=== PATIENT | female | born 1980 | race African-American/Black ===

== ENCOUNTER 2020-06-15 03:15 | Emergency (ER) | payer OTHER ==
[~2020-06-15] VITALS: Ht 147.3 cm; Wt 72.6 kg
[2020-06-15 03:20] VITALS: BP 136/82
--- NOTE | 2020-06-15 03:21 | NUR ---
PT ANDRES HENSLEY, PREBOOK WITH MARY JAMIL. TAKEN TO CHAIR D
--- NOTE | 2020-06-15 03:29 | NUR ---
Dr. Ruvalcaba examining patient.
--- NOTE | 2020-06-15 04:26 | NUR ---
DONI TAYLOR FROM [facility] - PT HAS BEEN CITED AND IS RELEASED FROM THEIR CUSTODY AT THIS TIME.
--- NOTE | 2020-06-15 04:26 | NUR ---
PT CITE AND RELEASED BY MARY JAMIL
--- NOTE | 2020-06-15 04:37 | NUR ---
PT TAKEN TO XRAY
--- NOTE | 2020-06-15 04:47 | NUR ---
PT RETURN FROM XRAY
[2020-06-15 05:00] VITALS: BP 136/82
--- NOTE | 2020-06-15 05:00 | NUR ---
PATIENT ELOPED FROM FACILITY. DISCHARGE INSTRUCTIONS NOT GIVEN TO PATIENT. DR. NEVILLE NOTIFIED.
== END 2020-06-15 05:00 | disposition left against medical advice (07) ==
LOC: MED 03:15
DX: R10.30 Lower abdominal pain, unspecified (principal)
CPT/HCPCS: 74018; 81002; 81025; 99283

== ENCOUNTER 2020-10-11 21:06 | Emergency (ER) | payer OTHER ==
[~2020-10-11] VITALS: Ht 157.5 cm; Wt 68.0 kg
[2020-10-11 21:07] VITALS: BP 122/79
--- NOTE | 2020-10-11 21:07 | NUR ---
TO BED VIA WHEEELCHAIR
--- NOTE | 2020-10-11 21:22 | NUR ---
PATIENT AMBULATED WITH SLOW, STEADY GAIT FROM RESTROOM WITH BED.
--- NOTE | 2020-10-11 21:24 | NUR ---
39 Y/O FEMALE CAME TO THE ED FOR LEFT ABDOMINAL PAIN OF 03/28 THAT STARTED TODAY. DENIES N/V/D; SKIN IS PINK/WARM/DRY; AAOX4 WITH EVEN AND STEADY GAIT; LUNGS CLEAR BL; HR EVEN AND REGULAR; PT DENIES ANY FEVER, CP, SOB, OR COUGH AT THIS TIME; VSS; PATIENT POSITIONED FOR COMFORT; HOB ELEVATED; BEDRAILS UP X2; BED DOWN. ER MD MADE AWARE OF PT STATUS. PMH: GASTRIC BYPASS 2017, UTERUS TUMOR REMOVAL SEPTEMBER 2018 JAYDE
--- NOTE | 2020-10-11 21:24 | NUR ---
ERMD AT BEDSIDE.
[2020-10-11] MEDS ORDERED: FAMOTIDINE 20 MG/2 ML VIAL IVP ONE (21:30)
[2020-10-11] MEDS ORDERED: NACL 0.9% 1,000 ML IV ONE (21:30)
[2020-10-11] MEDS ORDERED: MORPHINE SULFATE 4 MG/ML SYR IVP ONE (21:30)
[2020-10-11 21:47] LABS: BASOPHILS % (AUTO) 1.3 % (0.0-2.0); EOSINOPHILS % (AUTO) 0.9 % (0.0-4.0); HEMATOCRIT 34.8 % (36-48); HEMOGLOBIN 11.2 g/dL (12.0-16.0); LYMPHOCYTES # (AUTO) 1.1 K/uL (2.5-16.5); LYMPHOCYTES % (AUTO) 33.4 % (20.5-51.1); MEAN CORPUSCULAR HEMOGLOBIN 29 pg (27-31); MEAN CORPUSCULAR HGB CONC 32 g/dL (33-37); MEAN CORPUSCULAR VOLUME 88.7 fL (80-94); MONOCYTES # (AUTO) 0.3 K/uL (0.8-1.0); MONOCYTES % (AUTO) 7.8 % (1.7-9.3); NEUTROPHILS # (AUTO) 1.9 K/uL (1.8-7.7); NEUTROPHILS % (AUTO) 56.6 % (42.2-75.2); PLATELET COUNT (AUTO) 452 K/uL (140-450); RED BLOOD CELL COUNT(AUTO) 3.92 MIL/uL (4.20-5.40); RED CELL DISTRIBUTION WIDTH 22.5 % (11.6-13.7); WHITE BLOOD COUNT (AUTO) 3.4 K/uL (4.8-10.8)
[2020-10-11 21:47] LABS: APPEARANCE,URINE CLEAR (CLEAR); BILIRUBIN,URINE NEGATIVE (NEGATIVE); BLOOD, URINE NEGATIVE (NEGATIVE); COLOR,URINE YELLOW (YELLOW); LEUKOCYTE ESTERASE ,URINE NEGATIVE (NEGATIVE); NITRITE, URINE NEGATIVE (NEGATIVE); UGLUCOSE NEGATIVE (NEGATIVE)
[2020-10-11 22:00] LABS: BARBITURATE, URINE NEGATIVE ng/ml (NEG <=200); BENZODIAZEPINE, URINE NEGATIVE ng/mL (NEG <=200); CANNABINOID, URINE NEGATIVE ng/mL (NEG <=50); COCAINE, URINE NEGATIVE ng/mL (NEG <=300); OPIATE, URINE NEGATIVE ng/mL (NEG <=2000); PHENCYCLIDINE SCREEN,URINE NEGATIVE ng/mL (NEG <=25)
[2020-10-11 22:03] LABS: ALBUMIN 2.7 g/dL (3.4-5.0); ANION GAP 5.7 (8-16); CARBON DIOXIDE 34.2 mmol/L (21-32); CREATININE 0.8 mg/dL (0.6-1.3); TOTAL BILIRUBIN 0.3 mg/dL (0.0-1.0)
[2020-10-11 22:13] LABS: POTASSIUM 2.9 mmol/L (3.5-5.1)
[2020-10-11] MEDS ORDERED: KCL 20 MEQ/WATER INJ PREMIX 100 ML IV ONE (23:00)
[2020-10-12] MEDS ORDERED: FAMO-92 PO (00:10)
[2020-10-12 02:14] VITALS: BP 122/79
--- NOTE | 2020-10-12 02:15 | NUR ---
Patient discharged with v/s stable. Written and verbal after care instructions given and explained. Patient alert, oriented and verbalized understanding of instructions. Ambulatory with steady gait. All questions addressed prior to discharge. ID band removed. Patient advised to follow up with PMD. Rx of FAMOTIDINE given. Patient educated on indication of medication including possible reaction and side effects. Opportunity to ask questions provided and answered.
--- NOTE | 2020-10-13 19:29 | NUR ---
LATE ENTRY- POTASSIUM CHLORIDE IVPB DISCONTINUED AT 0211
== END 2020-10-12 02:15 | disposition home or self-care (01) ==
LOC: MED 21:06
DX: K29.20 Alcoholic gastritis without bleeding (principal); F31.9 Bipolar disorder, unspecified
CPT/HCPCS: 36415; 70486; 71250; 74176; 80053; 80305; 81003; 81025; 82150; 83690; 85025; 96361; 96365; 96375; 99285; J2270; J3480; J3490; J7030

== ENCOUNTER 2023-07-24 10:22 | Emergency (ER) | payer MEDICAID, OTHER ==
[~2023-07-24] VITALS: Ht 147.3 cm; Wt 58.5 kg
[~2023-07-24 10:22] MED LIST: FAMO-92 PO
[2023-07-24 10:45] VITALS: BP 135/90; PULSE 65; RESP 16; TEMP 97.6; O2SAT 99
[2023-07-24] MEDS: DEXTROSE 50% 50 ML SYR IVP ONE (11:13)
[2023-07-24 11:47] LABS: BASOPHILS # (AUTO) 0.1 K/uL (0.00-0.22); BASOPHILS % (AUTO) 1.7 % (0.0-2.0); EOSINOPHILS # (AUTO) 0.1 K/uL (0-0.4); EOSINOPHILS % (AUTO) 1.5 % (0.0-4.0); HEMATOCRIT 33.2 % (36-48); HEMOGLOBIN 10.2 g/dL (12.0-16.0); LYMPHOCYTES # (AUTO) 1.5 K/uL (2.5-16.5); LYMPHOCYTES % (AUTO) 23.5 % (20.5-51.1); MEAN CORPUSCULAR HEMOGLOBIN 25 pg (27-31); MEAN CORPUSCULAR HGB CONC 31 g/dL (33-37); MEAN CORPUSCULAR VOLUME 81.1 fL (80-94); MONOCYTES # (AUTO) 0.5 K/uL (0.8-1.0); MONOCYTES % (AUTO) 8.7 % (1.7-9.3); NEUTROPHILS % (AUTO) 64.6 % (42.2-75.2); PLATELET COUNT (AUTO) 486 K/uL (140-450); RED BLOOD CELL COUNT(AUTO) 4.09 MIL/uL (4.20-5.40); RED CELL DISTRIBUTION WIDTH 26.9 % (11.6-13.7); WHITE BLOOD COUNT (AUTO) 6.2 K/uL (4.8-10.8)
[2023-07-24 12:02] LABS: ANION GAP 12.2 (8-16); CALCIUM 8.5 mg/dL (8.5-10.1); CARBON DIOXIDE 25.9 mmol/L (21-32); CREATININE 0.6 mg/dL (0.6-1.3); POTASSIUM 4.1 mmol/L (3.5-5.1)
[2023-07-24 12:24] LABS: INR 1.07 (0.8-1.2); PARTIAL THROMBOPLASTIN TIME 26.8 secs (22-35.6); PROTHROMBIN TIME 11.2 secs (10.8-13.4)
[2023-07-24 14:01] VITALS: BP 114/67; PULSE 69; RESP 19; O2SAT 100
== END 2023-07-24 15:13 | disposition home or self-care (01) ==
LOC: MED 10:22
DX: E16.2 Hypoglycemia, unspecified (principal); F41.9 Anxiety disorder, unspecified; F32.9 Major depressive disorder, single episode, unspecified; Z79.899 Other long term (current) drug therapy
CPT/HCPCS: 36415; 71045; 80048; 82948; 83880; 84484; 85025; 85610; 85730; 93005; 96374; 99285